=== PATIENT | female | born 1960 | race Caucasian/White ===

== ENCOUNTER 2020-04-07 10:19 | Outpatient (REF) | payer OTHER, SELFPAY | END 2020-04-07 10:20 | disposition home or self-care (01) | LOC: HO.LAB 10:19 | PROVIDERS: Visit Provider Internal Medicine | DX: Z20.828 Contact with and (suspected) exposure to other viral communicable diseases (principal) | CPT/HCPCS: C9803; U0003 ==

== ENCOUNTER 2020-12-29 10:01 | Outpatient (REF) | payer OTHER, SELFPAY ==
[2020-12-29 10:33] LABS: Hematocrit 43.3 % (37-47); Hemoglobin 14.1 g/dl (12.0-16.0); Mean Corpuscular HGB Conc 32.6 g/dl (31.0-35.0); Mean Corpuscular Hemoglobin 29.2 pg (27.0-33.0); Mean Corpuscular Volume 89.6 fL (80-98); Mean Platelet Volume 9.8 fL (9.4-12.3); Platelet Count 266 X10*3/uL (160-400); Red Blood Count 4.83 X10*6/uL (4.20-5.50); Red Cell Distribution Width 12.3 % (11.0-16.0)
[2020-12-29 10:52] LABS: Anion Gap 11 (12-20); Blood Urea Nitrogen 10 mg/dL (9-16); Calcium 9.6 mg/dL (8.4-10.2); Carbon Dioxide 26 mmol/L (22-29); Chloride 108 mmol/L (96-108); Cholesterol 204 mg/dL; Estimated Glomerular Filt Rate > 60; Glucose Random 94 mg/dL (60-115); HDL Cholesterol 46 mg/dL; LDL Cholesterol Calculated 136 mg/dl; Potassium 4.4 mmol/L (3.3-5.1); Sodium 141 mmol/L (135-145); Triglycerides 110 mg/dL
[2020-12-29 11:01] LABS: Estimated Average Glucose 105 mg/dL; Hemoglobin A1c % 5.3 %
[2020-12-29 11:17] LABS: TSH reflex Free T4 0.75 uIU/mL (0.32-4.0); Vitamin D 25-OH Total 22.1 ng/mL (>30)
[2020-12-31 09:41] LABS: Vitamin B12 589 pg/mL (200-900)
[2020-12-31 17:01] LABS: Lyme Abs Screen <0.90 index
== END 2020-12-29 10:02 | disposition home or self-care (01) ==
LOC: HO.LAB 10:01
PROVIDERS: PCP Internal Medicine; Visit Provider Internal Medicine
DX: R53.83 Other fatigue (principal); R73.01 Impaired fasting glucose
CPT/HCPCS: 36415; 80048; 80061; 82306; 82607; 83036; 84443; 85027; 86617; 86618

== ENCOUNTER 2022-06-27 14:48 | Outpatient (REF) | payer OTHER, SELFPAY ==
--- NOTE | ~2022-06-27 | MM_ITS ---
EXAMINATION: BONE DENSITOMETRY CLINICAL INDICATION: Menopause. COMPARISON: Baseline BD dated 04/24/2017. TECHNIQUE: Using a BYOM! DXA System (software version: 13.1) manufactured by [employer], dual-energy x-ray absorptiometry was performed of the lumbar spine and left hip. The images are of good technical quality. Summary results are attached. FINDINGS: AP SPINE L1-L4: Current: BMD 0.843 g/cm2, Z-score -1.8, T-score -2.8, osteoporosis, 8.7% decrease from baseline (<5% change is not significant). Baseline: BMD 0.923 g/cm2. LEFT FEMUR, NECK: Current: BMD 0.762 g/cm2, Z-score -0.9, T-score -2.0, osteopenia. Baseline: BMD 0.805 g/cm2. LEFT FEMUR, TOTAL: Current: BMD 0.800 g/cm2, Z-score -0.9, T-score -1.6, osteopenia, 5.3% decrease from baseline (<5% change is not significant). Baseline: BMD 0.845 g/cm2. IDENTIFIED RISK FACTORS: Early menopause, family history (parent hip fracture), left oophorectomy, secondary osteoporosis. HISTORY OF FRACTURE: None listed. MEDICATIONS: Calcium or multivitamin. Vitamin D. MM/XR DEXA axial skeleton IMPRESSION: 1. DIAGNOSIS: Osteoporosis based on the lowest T-score value of -2.8 in the lumbar spine applying World Health Organization criteria. 2. 10-YEAR FRACTURE RISK PREDICTION, FRAX: According to the guidelines, FRAX calculation should only be performed on patients in the osteopenia bone density category. Therefore, FRAX was not performed on this patient. 3. Treatment Recommendations: NOF guidelines recommend consideration for treatment in postmenopausal women and men age 50 and older presenting with the following: -A hip or vertebral (clinical or morphometric) fracture. -T-score less than or equal to -2.5 at the femoral neck or spine after appropriate evaluation to exclude secondary causes. -Low bone mass at the hip or spine and a 10-year fracture probability by FRAX of greater than or equal to 3% for hip fracture or greater than or equal to 20% for major osteoporotic fracture based on the [place] adapted WHO algorithm. 4. Other Recommendations: All treatment decisions require clinical judgment and consideration of individual patient factors, including patient preferences, comorbidities, previous drug use, risk factors not captured in the FRAX model (e.g. frailty, falls, vitamin D deficiency, increased bone turnover, interval significant decline in bone density) and possible under or overestimation of fracture risk by FRAX. Additional medical evaluation for secondary cause of low bone mineral density may be appropriate. FUTURE SCAN RECOMMENDATION: People with diagnosed cases of osteoporosis or at high risk for fracture should have regular bone mineral density tests. For patients eligible for Medicare, routine testing is allowed once every 2 years. The testing frequency can be increased to one year for patients who have rapidly progressing disease, those who are receiving or discontinuing medical therapy to restore bone mass, or have additional risk factors.
== END 2022-06-27 14:49 | disposition home or self-care (01) ==
LOC: HO.MAMMO 14:48
PROVIDERS: PCP Internal Medicine; Visit Provider Internal Medicine
DX: Z13.820 Encounter for screening for osteoporosis (principal); M85.80 Other specified disorders of bone density and structure, unspecified site; Z78.0 Asymptomatic menopausal state
CPT/HCPCS: 77080

== ENCOUNTER 2023-01-17 09:22 | Outpatient (REF) | payer OTHER, SELFPAY ==
[2023-01-17 10:45] LABS: Alanine Aminotransferase 13 U/L (0-31); Alkaline Phosphatase 89 U/L (39-117); Aspartate Amino Transferase 21 U/L (5-31); Bilirubin Direct < 0.2 mg/dL (0.0-0.5); Bilirubin Total 0.2 mg/dL (0.0-1.0); Cholesterol 169 mg/dL (<200); HDL Cholesterol 42 mg/dL (>40); LDL Cholesterol Calculated 107 mg/dL (<100); Total Protein 7.3 g/dL (6.5-8.0); Triglycerides 103 mg/dL (<150)
[2023-01-17 10:52] LABS: Vitamin D 25-OH Total 42.3 ng/mL (>30)
== END 2023-01-17 09:23 | disposition home or self-care (01) ==
LOC: HO.LAB 09:22
PROVIDERS: PCP Internal Medicine; Visit Provider Internal Medicine
DX: R10.13 Epigastric pain (principal); E55.9 Vitamin D deficiency, unspecified; E78.00 Pure hypercholesterolemia, unspecified
CPT/HCPCS: 36415; 80061; 80076; 82306

== ENCOUNTER 2023-07-27 08:52 | Outpatient (AMB) | payer OTHER, SELFPAY ==
--- NOTE | 2023-07-27 08:56 | A.OFFVIS_ITS ---
Intake Vital Signs 07/27/23 09:05 Height 5 ft Weight 146 lb BMI 28.5 Intake Visit Reasons: N/P B/L hip pain per PCP ref Intake Note: Keysha mansfield 62 year old female presents today as a new patient for an evaluation of bilateral hip pain. Patient reports hip pain when walking or stand up. Forensic Specialist Required: No Information Interpreted: non-clinical & clinical Accompanied by: Self / Same As Patient Allergies morphine [MORPHINE] Allergy (Unknown, Unverified 07/27/23 08:56) UNKNOWN Medication List - Last Reconciled 07/27/23 by Anand Tamayo PA-C alendronate 70 mg PO QWEEK atorvastatin 40 mg PO BEDTIME fluoxetine 10 mg PO DAILY HPI N/P B/L hip pain per PCP ref HPI Details 62-year-old female who presents to the [facility] today for evaluation of bilateral hip pain. She was seen by her PCP who referred her to our office. She states she has pain in her bilateral hip pain which is worse on her right hip. Her pain is aggravated with walking, standing up and in the mornings. She denies any groin pain, numbness or tingling. She does not have a history of diabetes. [facility] Social History (Updated 07/27/23 @ 09:12 by Kylah Rdz MA) Household Members: Family Housing: House Alcohol intake: never Patient Tobacco Use Status: Never used Tobacco Review of Systems Const All systems reviewed & are unremarkable except as noted in HPI and below Physical Exam Vital Signs: BMI result Body Mass Index 28.5 Const General: cooperative, healthy appearing, comfortable, no acute distress, well developed and alert Orientation/consciousness: patient oriented x3 HEENT Head: Yes normal to inspection, Yes normocephalic and Yes atraumatic Eyes General: appearance normal, both eyes and all related structures Resp Effort & Inspection: normal respiratory effort and able to speak in complete sentences Cardio Rate: regular rate Peripheral pulses: Peripheral pulses 2+ throughout GI Palpation (GI): Soft to palpation Skin Lesions: no lesions Rashes: no rashes Neuro General: patient oriented x3 Extrem Other: Bilateral hip: Normal to inspection. No pain with ROM of the hip. Pain along the greater trochanter. No pain with hip flexion or abduction. Negative tenderness along the SI joint, Negative SLR. NVI. Office Procedures Joint Injection/Drain Joint Injection/Drain Details: bilat hip bursa Prep: site was prepped using aseptic technique, ethochloride spray was applied and injection warnings given Injected: 80 mg of, DepoMedrol, with 8 mL of and 1% plain lidocaine Procedure: The patient tolerated the procedure well and there was some relief wi th the local anesthesia Coding - Glenohumeral/Tronchanteric Bursa/Intraarticular Procedure code (CPT) selection complete Results Reviewed Results Reviewed: Xrays were obtained in the office today and personally reviewed by me of both hips show moderate acetabular sclerosis Assessment & Plan Assessment & Plan (1) Low back pain: Code(s): M54.50 - Low back pain, unspecified (2) Trochanteric bursitis of both hips: Code(s): M70.61 - Trochanteric bursitis, right hip; M70.62 - Trochanteric bursitis, left hip Plan We discussed options today which include steroid injection. They did consent to move forward with the bilateral hip injection, which was tolerated well. I recommended rest, ice and elevation and OTC anti-inflammatories PRN for discomfort. A course of physical therapy was also ordered in the office today. If symptoms persist or worsens over the next 6-8 weeks, patient will contact the office, otherwise follow-up as needed. Orders: Orders XR hip LT min 2V Today M25.552 - Pain in left hip PT Evaluation and Treatment Today M54.50 - Low back pain, unspecified, M70.61 - Trochanteric bursitis, right hip, M70.62 - Trochanteric bursitis, left hip Patient Instructions: Scribed for Anand Tmaayo PA-C, by Jun Feliz medical research associate, on 07/27/2023 at 9:00 AM EST. IAnand PA-C, have personally reviewed and agree with the information entered by the scribe. Coding Level of Care Code New Pt Level 3 (87608) Diagnoses Low back pain M54.50 Trochanteric bursitis of both hips M70.61; M70.62 CPT Codes Coding - Joint 7: 39839 - Glenohumeral/Tronchanteric Bursa/Intraarticular ([id number])
[2023-07-27 09:05] VITALS: BMI 28.5
== END 2023-07-27 10:56 | disposition home or self-care (01) ==
PROVIDERS: PCP Internal Medicine; Visit Provider Physician Assistant
DX: M70.61 Trochanteric bursitis, right hip (principal); M70.62 Trochanteric bursitis, left hip; M54.50 Low back pain, unspecified
CPT/HCPCS: 20610; 99203

== ENCOUNTER 2023-07-27 09:58 | Outpatient (REF) | payer OTHER, SELFPAY ==
--- NOTE | ~2023-07-27 | XR_ITS ---
EXAMINATION: XR BILATERAL HIPS WITH AP PELVIS CLINICAL INFORMATION: Hip pain. Phleboliths and fecal retention. COMPARISON: 07/01/2019 TECHNIQUE: AP view of the pelvis and single views of each hip were obtained. FINDINGS: Bony pelvis is intact. Pedicles and SI joints within normal limits. No significant hip joint narrowing bilaterally. No fracture or dislocation. XR/XR hip BI w PEL1V IMPRESSION: No acute bony pathology pelvis and bilateral hips.
== END 2023-07-27 09:59 | disposition home or self-care (01) ==
LOC: HO.HOSX 09:58
PROVIDERS: Visit Provider Physician Assistant
DX: M54.50 Low back pain, unspecified (principal); M70.61 Trochanteric bursitis, right hip; M70.62 Trochanteric bursitis, left hip
CPT/HCPCS: 20610; 73521; J1010; J1040

== ENCOUNTER 2024-02-06 10:15 | Outpatient (REF) | payer OTHER, SELFPAY ==
[2024-02-06 11:54] LABS: Alanine Aminotransferase 15 U/L (0-31); Albumin Level 4.1 g/dL (3.5-5.0); Alkaline Phosphatase 75 U/L (39-117); Aspartate Amino Transferase 15 U/L (5-31); Bilirubin Direct 0.1 mg/dL (0.0-0.5); Bilirubin Total 0.5 mg/dL (0.0-1.0); Cholesterol 225 mg/dL (<200); HDL Cholesterol 48 mg/dL (>40); LDL Cholesterol Calculated 159 mg/dL (<100); Triglycerides 93 mg/dL (<150)
[2024-02-06 12:11] LABS: Vitamin D 25-OH Total 32.9 ng/mL (>30)
[2024-02-06 12:30] LABS: Reflex LDLD? No
[2024-02-07 04:11] LABS: HBS Num1 0.45 mIU/mL (0-7.99); HBc Num1 0.12 S/CO (0.00-0.79); HBsAGNum1 0.52 S/CO (0.00-0.99); Hepatitis A Antibody IgM 0.47 Index (0-0.79); Hepatitis B Core Antibody Nonreactive (Nonreactive); Hepatitis B Surface Antigen Negative (Negative); ~HepC Num1 0.13 S/CO (0.00-0.79); ~Hepatitis A Antibody IgM Nonreactive (Nonreactive); ~Hepatitis B Surface Antibody NONREACTIVE (Nonreactive); ~Hepatitis C Antibody Nonreactive (Nonreactive)
== END 2024-02-06 10:16 | disposition home or self-care (01) ==
LOC: HO.LAB 10:15
PROVIDERS: PCP Internal Medicine; Visit Provider Internal Medicine
DX: Z00.00 Encounter for general adult medical examination without abnormal findings (principal); E78.00 Pure hypercholesterolemia, unspecified; M70.62 Trochanteric bursitis, left hip; M81.0 Age-related osteoporosis without current pathological fracture
CPT/HCPCS: 36415; 80061; 80076; 82306; 86704; 86706; 86709; 86803; 87340

== ENCOUNTER 2024-04-21 12:53 | Outpatient (REF) | payer BC, SELFPAY ==
[2024-04-24 03:53] LABS: TS Negative Control Passed; TS Panel A 0; TS Panel B 0; TS Positive Control Passed; TSpotTB Negative (Negative)
== END 2024-04-21 12:54 | disposition home or self-care (01) ==
LOC: HO.LAB 12:53
PROVIDERS: PCP Internal Medicine; Visit Provider Internal Medicine
DX: Z00.00 Encounter for general adult medical examination without abnormal findings (principal)
CPT/HCPCS: 36415; 86481

== ENCOUNTER 2024-09-17 09:40 | Outpatient (REF) | payer BC, SELFPAY ==
--- OUTSIDE RECORDS SUMMARY | 2024-09-17 09:43 | XMS_ITS | Encounter Summary ---
Author Organization [employer] Address [address] [facility] [place] [address] Care Team Providers Care Chart Snatcher Name Role Phone Kristina Ambrose MD Primary Care Provider + Reason for Visit * Reason Onset Date Comments Referral 02/19/2023 Encounter Details Date Type Department Care Team ([facility] st Contact Info) Description 02/19/2023 Telephone [facility] [address], [place] [phone] Kristina Ambrose MD [address] [place], [place] [phone] Referral Social History Tobacco Use Types Packs/Day Years Used Date Smoking Tobacco: Never Smokeless Tobacco: Never Alcohol Use Standard Drinks/Week Comments Never 0 (1 standard drink = 0.6 oz pur e alcohol) PHQ-2 Answer Date Recorded Patient Health Questionnaire-2 Score 0 06/05/2022 Housing Stability Answer Date Recorded What is your housing situation today? I have [employer] 02/06/[address] you li ve. Do you have problems with any of the following? None of the above 02/06/2023 Food Insecurity Answer Date Recorded Within the past 12 months, y ou worried that your food would run out before you got money to buy more: Never True 02/06/2023 Within the past 12 months,th e food you bought just didn't last and you didn't have enough money to get more: Never True Transportation Answer Date Recorded In the past 12 months, has l ack of transportation kept you from medical appts, meetings, work or from getting things needed for daily living? No 02/06/2023 Utilities Answer Date Recorded In the past 12 months, has t he electric, gas, oil or water company threatened to shut off services in your home? No 02/06/2023 Depression Answer Date Recorded Patient Health Questionnaire-2 Score 0 06/05/2022 Comments Unknown Sex and Gender Information Value Date Recorded Sex Assigned at Female 02/17/2022 10:23 AM EDT Legal Sex Female 10:23 AM EDT Gender Identity Female 02/17/2022 10:23 AM EDT Sexual Orientation Straight 02/17/2022 10 :23 AM EDT documented as of this encounter Miscellaneous Notes * Telephone Encounter - Enid Rojas - 02/19/2023 10:10 AM EDT Referral and notes refaxed to [facility] per request * Telephone Encounter - Leslie Shah - 02/19/2023 9:59 AM EDT Tc nevaeh wyatt with [facility] requesting for refrral and OV notes to be re faxed to [phone]. Clinic has not received referral. documented in this encounter Plan of Treatment Upcoming Encounters Date Type Department Care Team (Late st Contact Info) Description 10/18/2024 12:00 PM EDT Telemedicine [facility] [address] [place] [address] Kristina Ambrose MD [address] [place] [address] documented as of this encounter Visit Diagnoses Not on filedocumented in this encounter Care Teams Chart Snatcher Relationship Specialty Start Date End Date Kristina Ambrose MD [address] [place] [address] PCP - General Family Medicine 02/05/16 documented as of this encounter
[2024-09-17 10:31] LABS: Cholesterol 244 mg/dL (<200); HDL Cholesterol 52 mg/dL (>40); LDL Cholesterol Calculated 171 mg/dL (<100); Triglycerides 109 mg/dL (<150)
[2024-09-17 14:04] LABS: Reflex LDLD? No
[2024-09-18 03:54] LABS: HBS Num1 0.19 mIU/mL (0-7.99); HBc Num1 0.08 S/CO (0.00-0.79); HBsAGNum1 0.59 S/CO (0.00-0.99); Hepatitis A Antibody IgM 0.31 Index (0-0.79); Hepatitis B Core Antibody Nonreactive (Nonreactive); Hepatitis B Surface Antigen Negative (Negative); ~HepC Num1 0.16 S/CO (0.00-0.79); ~Hepatitis A Antibody IgM Nonreactive (Nonreactive); ~Hepatitis B Surface Antibody NONREACTIVE (Nonreactive); ~Hepatitis C Antibody Nonreactive (Nonreactive)
== END 2024-09-17 09:41 | disposition home or self-care (01) ==
LOC: HO.LAB 09:40
PROVIDERS: PCP Internal Medicine; Visit Provider Internal Medicine
DX: R73.01 Impaired fasting glucose (principal); Z13.6 Encounter for screening for cardiovascular disorders
CPT/HCPCS: 36415; 80061; 86704; 86706; 86709; 86803; 87340

== ENCOUNTER 2024-09-20 15:35 | Outpatient (AMB) | payer BC, SELFPAY ==
--- NOTE | 2024-09-20 15:45 | MHC.OFFVIS ---
Vital Signs 09/20/24 15:49 Height 5 ft Weight 165 lb BMI 32.2 Handedness Right Intake Visit Reasons: New prob LT thumb pain Intake Note: Keysha is a 63 year old right hand dominant female who presents today for a new problem visit for evaluation of left thumb pain. Patient reports pain at the base of her 1st left hand digit. She states her pain is not constant however it happens whenever she uses her left hand. Reports her pain is worse at night. Heavy lifting and opening jars has turned into a challenge due to exacerbation of pain. Denies numbness and tingling. Has tried a brace with some relief but she says the ones she has now is too large. [employer] Uphol[employer] Required: Yes [employer] Language: Senior Genetic Counselor Services: [employer] Present [employer] Name: Kira Coronado ID#[id number] Allergies morphine [MORPHINE] Adverse Reaction (Severe, Unverified 09/20/24 16:08) anxious HPI HPI New prob LT thumb pain: Details: Keysha is a 63 year old right hand dominant female who presents today for a new problem visit for evaluation of left thumb pain. Patient reports pain at the base of her 1st left hand digit. She states her pain is not constant however it happens whenever she uses her left hand. Reports her pain is worse at night. Heavy lifting and opening jars has turned into a challenge due to exacerbation of pain. Denies numbness and tingling. Has tried a brace with some relief but she says the ones she has now is too large. [facility] Social History (Updated 09/20/24 @ 15:51 by SHAYNA Turner) Household Members: Family Housing: House Alcohol intake: never Patient Tobacco Use Status: Never used Tobacco Current occupational status: employed Current occupation: Works with people with disabilities Review of Systems Const All systems reviewed & are unremarkable except as noted in HPI and below Physical Exam Vital Signs: BMI result Body Mass Index 32.2 Extrem Other: Patient is alert, oriented, and in no acute distress. Neuro: Normal sensation of the tips of all digits of the bilateral hand at this time Vascular: Cap refill brisk Pain: No tenderness to palpation anywhere in the bilateral hands or wrists Negative Juany bilaterally Pain with range of motion of bilateral thumbs in the APB musculature of bilateral hands ROM: Patient is able to make a closed fist and extend all digits of the bilateral hands fully, but does report some discomfort in the APB muscle when doing so Skin: No lacerations or abrasions. General: No ecchymosis, erythema, or evidence of infection. Psych: Appears grossly normal Affect normal Attitude cooperative Assessment & Plan Assessment & Plan (1) Tendinitis of both hands: Code(s): M77.8 - Other enthesopathies, not elsewhere classified Category: Medical Plan 1. Tendinitis of bilateral thumbs Patient is educated about this condition Patient is educated about the typical treatment course At this time, patient is referred to occupational therapy for range of motion and strengthening of bilateral thumbs Patient is amenable to this plan Follow-up as needed Orders: Orders OT Evaluation and Treatment 09/20/24 M77.8 - Other enthesopathies, not elsewhere classified Coding Level of Care Code New Pt Level 3 (06461) Diagnoses Tendinitis of both hands M77.8
[2024-09-20 15:49] VITALS: BMI 32.2
--- OUTSIDE RECORDS SUMMARY | 2024-09-20 16:57 | XMS_ITS | Encounter Summary ---
Author Organization [employer] Address [address] [place] [address] Care Team Providers Care Sensitized Paper Tester Name Role Phone Kristina Ambrose MD Primary Care Provider + Reason for Visit * Reason Onset Date Comments Referral 02/19/2023 Encounter Details Date Type Department Care Team ([facility] st Contact Info) Description 02/19/2023 Telephone [facility] [address] [place], [place] [phone] Kristina Ambrose MD [address] [place], [place] [phone] Referral Social History Tobacco Use Types Packs/Day [...] AM EDT Referral and notes refaxed to [facility] per request * Telephone Encounter - Leslie Shah - 02/19/2023 9:59 AM EDT Tc nevaeh wyatt with [facility] requesting for refrral and OV notes to be re faxed to [phone]. Clinic has not received referral. documented in this encounter Plan of Treatment Upcoming Encounters Date Type Department Care Team (Late st Contact Info) Description 10/18/2024 12:00 PM EDT Telemedicine [facility] [address] [place] [address] Kristina Ambrose MD [address] [place] [address] documented as of this encounter Visit Diagnoses Not on filedocumented in this encounter Care Teams Sensitized Paper Tester Relationship Specialty Start Date End Date Kristina Ambrose MD [address] [place] [address] PCP - General Family Medicine 02/05/16 documented as of this encounter
== END 2024-09-20 16:24 | disposition home or self-care (01) ==
LOC: HO.HOS 15:36
PROVIDERS: PCP Internal Medicine
DX: M77.8 Other enthesopathies, not elsewhere classified (principal)
CPT/HCPCS: 99213

== ENCOUNTER → 2024-09-20 15:35 | Outpatient (BNVA) | payer BC, SELFPAY | PROVIDERS: PCP Internal Medicine ==

== ENCOUNTER 2024-09-26 15:15 | Outpatient (AMB) | payer BC, SELFPAY ==
--- NOTE | 2024-09-26 15:22 | A.OFFVIS_ITS ---
Vital Signs 09/26/24 15:28 Height 5 ft Weight 163 lb BMI 31.8 Intake Visit Reasons: OV-B/l hip bursitis last inj 07/27/23 Intake Note: Keysha mansfield 63 year old female presents today for a follow up of bilateral hip pain, last injection 07/27/23. At patients last visit she was given injections and referred to physical therapy. Patient reports injections provided her with relief for about a year. Today she complains of pain in her groin and lower back area. She would like to discuss repeating injections. Allergies morphine [MORPHINE] Adverse Reaction (Severe, Unverified 09/26/24 15:27) anxious HPI HPI OV-B/l hip bursitis last inj 07/27/23: Details: 63 yo female returns to the office today f/u bilat hip pain. She states the previous injections were helpful and she was able to perform activities without pain. She states recently she has pain with prolonged standing or sitting. [facility] Surgical History (Updated 09/26/24 @ 15:27 by Erica Doshi [facility]) History of appendectomy Social History (Updated 09/20/24 @ 15:51 by Kasey Up [facility]) Household Members: Family Housing: House Alcohol intake: never Patient Tobacco Use Status: Never used Tobacco Current occupational status: employed Current occupation: Works with people with disabilities Review of Systems Const All systems reviewed & are unremarkable except as noted in HPI and below Physical Exam Vital Signs: BMI result Body Mass Index 31.8 Const General: cooperative, healthy appearing, comfortable, no acute distress, well developed and alert Orientation/consciousness: patient oriented x3 HEENT Head: Yes normal to inspection, Yes normocephalic and Yes atraumatic Eyes General: appearance normal, both eyes and all related structures Resp Effort & Inspection: normal respiratory effort and able to speak in complete sentences Cardio Rate: regular rate Peripheral pulses: Peripheral pulses 2+ throughout GI Palpation (GI): Soft to palpation Skin Lesions: no lesions Rashes: no rashes Neuro General: patient oriented x3 Extrem Other: Bilateral hip: Normal to inspection. No pain with ROM of the hip. Pain along the greater trochanter. No pain with hip flexion or abduction. Negative tenderness along the SI joint, Negative SLR. NVI. Office Procedures AMB Joint Injection/Aspiration Joint Injection/Aspiration Details: Trochanteric bursa bilateral Prep: site was prepped using aseptic technique, ethochloride spray was applied and injection warnings given Injected: 40 mg of, DepoMedrol, with 8 mL of and 1% plain lidocaine Procedure: The patient tolerated the procedure well and there was some relief with the local anesthesia Coding 83235 - Glenohumeral/Tronchanteric Bursa/Intraarticular Procedure code (CPT) selection complete Assessment & Plan Assessment & Plan (1) Trochanteric bursitis of both hips: Code(s): M70.61 - Trochanteric bursitis, right hip; M70.62 - Trochanteric bursitis, left hip Category: Medical Plan: We discussed options today, which include steroid injection. The patient did consent to move forward with the bilat hip bursa injection, which was tolerated well.? I recommended rest, ice and elevation and OTC antiinflammatories prn for discomfort. If symptoms persist over the next 6-8 weeks, they will contact our office, otherwise, prn Coding Level of Care Code Est Pt Level 3 (65478) Complex EM visit Add On G2211 Diagnoses Trochanteric bursitis of both hips M70.61; M70.62 CPT Codes Coding - Joint 7: 50446 - Glenohumeral/Tronchanteric Bursa/Intraarticular ([id number])
[2024-09-26 15:28] VITALS: BMI 31.8
--- OUTSIDE RECORDS SUMMARY | 2024-09-26 17:01 | XMS_ITS | Encounter Summary ---
Author Organization [employer] Address [address] [facility] [facility] [address] [place] [address] Care Team Providers Care Kiln Firer Helper Name Role Phone Kristina Ambrose MD Primary Care Provider + Reason for Visit * Reason Onset Date Comments Referral 02/19/2023 Encounter Details Date Type Department Care Team ([facility] st Contact Info) Description 02/19/2023 Telephone [facility] [address], [place] [phone] Kristina Ambrose MD [address] [place], [place] [phone] Referral Social History Tobacco Use Types Packs/Day [...] AM EDT Referral and notes refaxed to [facility] per request * Telephone Encounter - Leslie Shah - 02/19/2023 9:59 AM EDT Tc nevaeh wyatt with [facility] requesting for refrral and OV notes to be re faxed to [phone]. Clinic has not received referral. documented in this encounter Plan of Treatment Upcoming Encounters Date Type Department Care Team (Late st Contact Info) Description 10/18/2024 12:00 PM EDT Telemedicine [facility] [address] [place] [address] Kristina Ambrose MD [address] [place] [address] documented as of this encounter Visit Diagnoses Not on filedocumented in this encounter Care Teams Kiln Firer Helper Relationship Specialty Start Date End Date Kristina Ambrose MD [address] [place] [address] PCP - General Family Medicine 02/05/16 documented as of this encounter
== END 2024-09-26 16:04 | disposition home or self-care (01) ==
LOC: HO.HOS 15:16
PROVIDERS: PCP Internal Medicine; Visit Provider Physician Assistant
DX: M70.61 Trochanteric bursitis, right hip (principal); M70.62 Trochanteric bursitis, left hip
CPT/HCPCS: 20610; 99213

== ENCOUNTER → 2024-09-26 15:15 | Outpatient (BNVA) | payer BC, SELFPAY | PROVIDERS: PCP Internal Medicine; Visit Provider Physician Assistant | DX: M70.61 Trochanteric bursitis, right hip (principal); M70.62 Trochanteric bursitis, left hip | CPT/HCPCS: 20610; J1010; J2003 ==

== ENCOUNTER 2024-10-03 08:19 | Outpatient (REF) | payer BC, SELFPAY ==
--- NOTE | ~2024-10-03 | XR_ITS ---
EXAMINATION: XR SHOULDER, JACOB MIN 2V CLINICAL INFORMATION: M25.519 - Pain in unspecified shoulder COMPARISON: None available. TECHNIQUE: Three views of each shoulder. FINDINGS: RIGHT SHOULDER: Normal bone mineralization. No fracture, dislocation, or suspicious bone lesion. Normal alignment. The glenohumeral joint is normal. The AC joint is normal. There is a type II acromion. No undersurface spurring. The subacromial space is preserved. Remainder of the soft tissue and bony structures appear normal. LEFT SHOULDER: Normal bone mineralization. No fracture, dislocation, or suspicious bone lesion. Normal alignment. The glenohumeral joint is normal. The AC joint is normal. There is a type II acromion. No undersurface spurring. The subacromial space is preserved. Remainder of the soft tissue and bony structures appear normal. XR/XR Shoulder Jacob min 2V IMPRESSION: Normal bilateral shoulders. Electronically signed by: Marv Saleh MD 10/03/2024 03:46 PM EDT
--- OUTSIDE RECORDS SUMMARY | 2024-10-04 08:27 | XMS_ITS | Encounter Summary ---
Author Organization [employer] Address [address] [facility] [facility] [address] [place] [address] Care Team Providers Care Microchip Specialist Name Role Phone Kristina Ambrose MD Primary Care Provider + Reason for Visit * Reason Onset Date Comments Referral 02/19/2023 Encounter Details Date Type Department Care Team ([facility] st Contact Info) Description 02/19/2023 Telephone [facility] [address] [place], [place] [phone] Kristina Ambrose MD [address] [place], [place] [phone] Referral Social History Tobacco Use Types Packs/Day [...] AM EDT Referral and notes refaxed to [facility] per request * Telephone Encounter - Leslie Shah - 02/19/2023 9:59 AM EDT Tc nevaeh wyatt with [facility] requesting for refrral and OV notes to be re faxed to [phone]. Clinic has not received referral. documented in this encounter Plan of Treatment Upcoming Encounters Date Type Department Care Team (Late st Contact Info) Description 10/18/2024 12:00 PM EDT Telemedicine [facility] [address] [place] [address] Kristina Ambrose MD [address] [place] [address] documented as of this encounter Visit Diagnoses Not on filedocumented in this encounter Care Teams Microchip Specialist Relationship Specialty Start Date End Date Kristina Ambrose MD [address] [place] [address] PCP - General Family Medicine 02/05/16 documented as of this encounter
== END 2024-10-03 08:20 | disposition home or self-care (01) ==
LOC: HO.HOSX 08:19
PROVIDERS: Visit Provider Physician Assistant
DX: M25.512 Pain in left shoulder (principal); M25.511 Pain in right shoulder
CPT/HCPCS: 73030

== ENCOUNTER 2024-10-03 15:11 | Outpatient (AMB) | payer BC, SELFPAY ==
--- NOTE | 2024-10-03 15:19 | A.OFFVIS_ITS ---
Vital Signs 10/03/24 15:20 10/03/24 15:24 Height 5 ft 5 ft Weight 163 lb 163 lb BMI 31.8 31.8 Handedness Right Intake Visit Reasons: New prob- Bilat shoulder pain Intake Note: Keysha is a 63 year old right hand dominant female who presents today for a new problem visit with complaints of bilateral shoulder pain. Patient was seen by her PCP for right shoulder pain, she was referred to orthopedic. Patient reports off and on pain for about 6 months. She mentions that she is not having pain at the moment. Patient notices that her pain is worse when she is reaching for her back and when she is doing overhead reaching. She mentions that her hands started to get numb as well these past 2 months and she is unsure if its related to her pain. She has been taking meloxicam with relief. Manager Of Construction Services: Manager Of Construction Present (Bola ([id number])) Allergies morphine [MORPHINE] Adverse Reaction (Severe, Verified 10/03/24 15:24) anxious HPI HPI New prob- Bilat shoulder pain: Details: 63-year-old female presents to the office today for evaluation bilateral shoulder pain. She states the pain has been present for several weeks in the right is worse than the left. She has intermittent discomfort with overhead reaching and repetitive motion. She has difficulty reaching behind her back. She also has pain at night while she is sleeping. [facility] Surgical History (Updated 09/26/24 @ 15:27 by Erica Doshi Nazanin) History of appendectomy Social History Household Members: Family Housing: House Alcohol intake: never Patient Tobacco Use Status: Never used Tobacco Current occupational status: employed Current occupation: Works with people with disabilities Review of Systems Const All systems reviewed & are unremarkable except as noted in HPI and below Physical Exam Vital Signs: BMI result Body Mass Index 31.8 Extrem Other: Bilateral shoulders are normal to inspection. She has no tenderness to palpation over the AC joint or the proximal biceps tendon. She has full range of motion in all planes. 5/5 rotator cuff strength. Neurovascularly intact. Results Reviewed Results Reviewed: X-rays of both shoulders obtained in the office today and reviewed by me are neg ative for any acute or chronic abnormalities. Assessment & Plan Assessment & Plan (1) Tendonitis of both shoulders: Code(s): M77.8 - Other enthesopathies, not elsewhere classified Category: Medical Plan: Patient likely is experiencing tendonitis from deconditioning of the periscapular muscles and rotator cuff region. I do encourage physical therapy to work on strengthening and scap stabilization exercises. She should continue increasing activities as tolerated and if symptoms persist or worsen she can contact our office otherwise follow up as needed. Orders: Orders PT Evaluation and Treatment Today M77.8 - Other enthesopathies, not elsewhere classified XR Shoulder Jacob min 2V Today M25.519 - Pain in unspecified shoulder Coding Level of Care Code Est Pt Level 3 (41548) Complex EM visit Add On G2211 Diagnoses Tendonitis of both shoulders M77.8
[2024-10-03 15:20] VITALS: BMI 31.8
[2024-10-03 15:24] VITALS: BMI 31.8
--- OUTSIDE RECORDS SUMMARY | 2024-10-03 17:00 | XMS_ITS | Encounter Summary ---
Author Organization [employer] Address [address] [place] [address] Care Team Providers Care Interventional Radiology Technologist Name Role Phone Kristina Ambrose MD Primary Care Provider + Reason for Visit * Reason Onset Date Comments Referral 02/19/2023 Encounter Details Date Type Department Care Team ([facility] st Contact Info) Description 02/19/2023 Telephone [facility] [address] [place], [place] [phone] Kristina Ambrose MD [address] [place], [place] [phone] Referral Social History Tobacco Use Types Packs/Day [...] AM EDT Referral and notes refaxed to [facility] per request * Telephone Encounter - Leslie Shah - 02/19/2023 9:59 AM EDT Tc nevaeh wyatt with [facility] requesting for refrral and OV notes to be re faxed to [phone]. Clinic has not received referral. documented in this encounter Plan of Treatment Upcoming Encounters Date Type Department Care Team (Late st Contact Info) Description 10/18/2024 12:00 PM EDT Telemedicine [facility] [address] [place] [address] Kristina Ambrose MD [address] [place] [address] documented as of this encounter Visit Diagnoses Not on filedocumented in this encounter Care Teams Interventional Radiology Technologist Relationship Specialty Start Date End Date Kristina Ambrose MD [address] [place] [address] PCP - General Family Medicine 02/05/16 documented as of this encounter
== END 2024-10-03 15:38 | disposition home or self-care (01) ==
LOC: HO.HOS 15:11
PROVIDERS: PCP Internal Medicine; Visit Provider Physician Assistant
DX: M77.8 Other enthesopathies, not elsewhere classified (principal)
CPT/HCPCS: 99213

== ENCOUNTER → 2024-10-03 15:12 | Outpatient (BNV) | payer BC, SELFPAY | PROVIDERS: Visit Provider Radiology Diagnostic Radiology | DX: M25.511 Pain in right shoulder (principal); M25.512 Pain in left shoulder | CPT/HCPCS: 73030 ==